=== PATIENT | male | born 1985 | race African-American/Black ===

== ENCOUNTER 2016-08-23 21:06 | Emergency (ER) | payer MEDICAID ==
[~2016-08-23] VITALS: Ht 180.3 cm; Wt 86.8 kg
[2016-08-23 22:43] LABS: ASPARTATE AMINO TRANSFERASE 27 U/L (15-37); BLOOD UREA NITROGEN 15 mg/dL (7-18)
[2016-08-23 23:05] LABS: DIFF TOTAL CELLS COUNTED 100 CELL DIFF
[2016-08-23 23:12] LABS: LARGE PLATELETS 1+; POLYCHROMASIA 1+
[2016-08-23 23:13] LABS: VERIFY COUNTS? YES
[2016-08-24] MEDS ORDERED: CEFTRIAXONE 250 MG IM ONE (00:30)
[2016-08-24] MEDS ORDERED: AZITHROMYCIN 500 MG TABLET PO ONE (00:30)
[2016-08-24 00:49] VITALS: BP 112/64
== END 2016-08-24 00:51 | disposition home or self-care (01) ==
LOC: ED 23:37
DX: R30.0 Dysuria (principal); R31.9 Hematuria, unspecified; R10.9 Unspecified abdominal pain
CPT/HCPCS: 36415; 76700; 80053; 81001; 83690; 85025; 87086; 87491; 87591